=== PATIENT | male | born 1990 | race Caucasian/White ===

== ENCOUNTER 2023-03-06 18:16 | Emergency (ER) | payer SELFPAY ==
--- NOTE | ~2023-03-06 | CT_ITS ---
EXAMINATION: CTA chest PE protocol DATE: 03/06/2023 19:50 INDICATION: SOB TECHNIQUE: Computed tomography angiography (CTA) of the chest was performed with 100 mL Omnipaque-350 intravenous contrast timed to evaluate the pulmonary arteries. Coronal maximum intensity projection 3D-reconstructions were created by the technologist. The dose-length product (DLP) was 419.38 mGy-cm. Automated exposure control and iterative reconstruction technique were employed. COMPARISON: None. FINDINGS: Lung parenchyma and airways: Clear. Pleura: Unremarkable. Thoracic inlet, axillae and chest wall: Unremarkable. Thoracic aorta: Normal. Mediastinum: Normal. Heart and pericardium: Normal. Coronary artery calcifications: Absent. Upper abdomen: No significant finding. Bones: No acute osseous finding. Pulmonary arteries: Study quality: Adequate. No pulmonary emboli detected. IMPRESSION: No CT evidence of acute pulmonary embolus. No acute intrathoracic process detected. Reviewed, dictated and finalized at location K. IMPRESSION: No CT evidence of acute pulmonary embolus. No acute intrathoracic process detec kai.
--- NOTE | ~2023-03-06 | CT_ITS ---
EXAMINATION: CT brain wo con DATE: 03/06/2023 19:45 INDICATION: headache . TECHNIQUE: Computed tomography (CT) of the head was performed without intravenous contrast. The mA wa s adjusted according to patient size. Iterative reconstruction technique was employed. The dose-lengt h product was 681.00 mGy-cm. COMPARISON: None. FINDINGS: No acute intracranial hemorrhage or extra-axial fluid collection. No hydrocephalus, mass, or herniation. No acute ischemic infarct. Unremarkable dural venous sinus attenuation. No acute osseous abnormality. Small retention cysts or polyps in the left maxillary sinus, the remaining aerated spaces are clear. IMPRESSION: No acute intracranial process. Reviewed, dictated and finalized at location K.
[2023-03-06 18:21] VITALS: BP 155/89; PULSE 92; RESP 21; TEMP 36.8; O2SAT 97
[2023-03-06 18:26] VITALS: PULSE 92; RESP 23; O2SAT 97
[2023-03-06 18:30] VITALS: PULSE 95; RESP 17; O2SAT 98
[2023-03-06 18:32] VITALS: BP 146/88; PULSE 100; RESP 19; O2SAT 97
[2023-03-06 18:45] VITALS: PULSE 100; RESP 26; O2SAT 96
--- NOTE | 2023-03-06 18:53 | ECG_ITS ---
Measurements Intervals [place] Rate: 80 P: 62 UT: 171 QRS: 44 QRSD: 97 T: 50 QT: 352 QTc: 408 Interpretive Statements SINUS RHYTHM BORDERLINE VOLTAGE EVIDENCE OF LVH POSSIBLY NORMAL FOR AGE BORDERLINE ECG NO PREVIOUS ECG AVAILABLE FOR COMPARISON Electronically Signed On 03-07-2023 7:41:44 CDT by Phil Dahl M.D.
--- NOTE | 2023-03-06 19:05 | ED.GENADULT ---
HPI - General Adult General Chief complaint: Unspecified Stated complaint: sob, anxiety History of Present Illness HPI narrative: 32-year-old male presented to the emergency department for evaluation of shortness of breath and headache. Patient states while he was driving he had onset of shortness of breath and subsequently developed a headache. Patient denies any associated chest pain. Patient denies any previous cardiac history. Patient denies any prior history of PE DVT. Related Data Allergies Allergy/AdvReac Type Severity Reaction Status Date / Time bee venom protein (honey bee) Allergy Anaphylaxis Verified 03/06/23 18:56 [bees] Review of Systems Review of Systems: All systems reviewed & are unremarkable except as noted in HPI and below Exam Narrative: APPEARANCE: Well appearing, no pain, no distress, well-nourished. HEAD: normocephalic, atraumatic. EYES: PERRLA/EOMI, conjunctivae clear. NOSE: Normal no drainage NECK: Supple. No adenopathy, no masses. RESPIRATORY: Airway patent, respirations nonlabored. Clear to auscultation bilaterally, no rales, rhonchi, wheezing. CARDIOVASCULAR: Regular rate and rhythm without murmurs rubs or gallops. ABDOMINAL: Soft, nontender, nondistended, normal bowel sounds MUSCULOSKELETAL: Moves all extremities. Strength/ROM intact, No edema, No calf tenderness. NEURO: Alert. Cranial nerves II through XII intact. Grossly intact SKIN: Warm, dry. Normal Color Course Course Emergency Course: 32-year-old male presented the ED for evaluation of shortness of breath. Patient was afebrile with no chondrosis and a stable hemoglobin. CTA was negative for pulmonary embolism. CMP shows no acute abnormalities. Head CT was negative for acute abnormality. EKG showed normal sinus rhythm. Patient was updated on the results of the work-up and does feel improved. Patient was encouraged of close follow-up with his primary care physician. Vital Signs Vital signs: Vital Signs Temperature 98.3 F 03/06/23 18:21 Pulse Rate 92 03/06/23 18:21 Respiratory Rate 21 H 03/06/23 18:21 Blood Pressure 155/89 H 03/06/23 18:21 Pulse Oximetry 97 03/06/23 18:21 Oxygen Delivery Room Air 03/06/23 18:21 Temperature 98.3 F 03/06/23 18:21 Pulse Rate 78 03/06/23 20:36 Respiratory Rate 19 03/06/23 20:36 Blood Pressure 111/90 03/06/23 20:36 Pulse Oximetry 98 03/06/23 20:36 Oxygen Delivery Room Air 03/06/23 18:21 Medical Decision Making Vital Signs Vital Signs: Vital Signs Temperature 98.3 F 03/06/23 18:21 Pulse Rate 92 03/06/23 18:21 Respiratory Rate 21 H 03/06/23 18:21 Blood Pressure 155/89 H 03/06/23 18:21 Pulse Oximetry 97 03/06/23 18:21 Oxygen Delivery Room Air 03/06/23 18:21 Temperature 98.3 F 03/06/23 18:21 Pulse Rate 78 03/06/23 20:36 Respiratory Rate 19 03/06/23 20:36 Blood Pressure 111/90 03/06/23 20:36 Pulse Oximetry 98 03/06/23 20:36 Oxygen Delivery Room Air 03/06/23 18:21 Lab Data 03/06/23 19:11 03/06/23 19:11 Labs: Lab Results 03/06/23 Range/Units 19:11 WBC 8.0 (4.5-10.0) K/mm3 RBC 5.81 (4.6-6.20) M/mm3 Hgb 17.4 (14.0-18.0) g/dL Hct 49.4 (42.0-52.0) % MCV 85.0 (80-100) fl MCH 29.9 (26-34) pg MCHC 35.2 (32-36) g/dl RDW 13.0 (11.5-14.5) % Plt Count 226 (150-375) k/mm3 MPV 8.8 (7.4-10.4) fl Immature Gran % (Auto) 0.2 (0-0.5) % Neut % (Auto) 67.2 (45.5-73.1) % Lymph % (Auto) 27.1 (18.3-44.2) % [place] % (Auto) 4.4 (2.6-8.5) % Eos % (Auto) 0.4 (0-4.4) % Baso % (Auto) 0.7 (0.2-1.2) % Lymph # (Auto) 2.17 (0.9-3.2) K/mm3 [place] # (Auto) 0.4 (0.1-0.6) K/mm3 Eos # (Auto) 0.0 (0-0.3) K/mm3 Baso # (Auto) 0.1 (0.0-0.1) K/mm3 Abs Immat Gran (auto) 0.02 (0.00-0.031) K/mm3 Absolute Neuts (auto) 5.4 (1.3-6.7) K/mm3 Absolute Nucleated RBC 0.0 (0.0-0.012) K/mm3 Nucleated RBC % 0.0 (0.0-0.2) % Sodium 138 (137
[2023-03-06] MEDS: SODIUM CHLORIDE 0.9% IV 1,000 ML 999 ML IV CONT (19:07)
[2023-03-06 19:17] LABS: Basophils Absolute Auto 0.1 K/mm3 (0.0-0.1); Basophils Percent Auto 0.7 % (0.2-1.2); Eosinophils Percent Auto 0.4 % (0-4.4); Hematocrit 49.4 % (42.0-52.0); Hemoglobin 17.4 g/dL (14.0-18.0); Immature Granulocyte Absolute 0.02 K/mm3 (0.00-0.031); Immature Granulocyte Percent A 0.2 % (0-0.5); Lymphocytes Absolute Auto 2.17 K/mm3 (0.9-3.2); Lymphocytes Percent Auto 27.1 % (18.3-44.2); Mean Corpuscular HGB Conc 35.2 g/dl (32-36); Mean Corpuscular Hemoglobin 29.9 pg (26-34); Mean Platelet Volume 8.8 fl (7.4-10.4); Monocytes Absolute Auto 0.4 K/mm3 (0.1-0.6); Monocytes Percent Auto 4.4 % (2.6-8.5); Neutrophils Absolute Auto 5.4 K/mm3 (1.3-6.7); Neutrophils Percent Auto 67.2 % (45.5-73.1); Platelet Count Result 226 k/mm3 (150-375); Red Blood Count 5.81 M/mm3 (4.6-6.20)
[2023-03-06 19:28] LABS: Alanine Aminotransferase 19 U/L (6-50); Albumin Level 4.8 g/dL (3.5-5.1); Alkaline Phosphatase 63 U/L (38-126); Anion Gap 9 mmol/L (8-16); Aspartate Amino Transferase 23 U/L (17-59); Bilirubin,Total 0.9 mg/dL (0.2-1.3); Blood Urea Nitrogen 6 mg/dL (9-20); Calcium 9.8 mg/dL (8.4-10.2); Carbon Dioxide 24 mmol/L (22-30); Chloride 105 mmol/L (98-107); Estimated CRCL calculation 82 ml/min; Estimated Glomerular Filt Rate > 60; Glucose 100 mg/dL (65-110); Potassium 3.5 mmol/L (3.4-5.0); Sodium 138 mmol/L (137-145)
[2023-03-06 20:36] VITALS: BP 111/90; PULSE 78; RESP 19; O2SAT 98
[2023-03-06] MEDS: KETOROLAC 15 MG/ML VIAL (*BKC) IV PUSH (20:58)
== END 2023-03-06 21:41 | disposition home or self-care (01) ==
PROVIDERS: Emergency Provider Emergency Medicine
DX: R51.9 Headache, unspecified (principal); R06.00 Dyspnea, unspecified
CPT/HCPCS: 36415; 70450; 71275; 80053; 85025; 93005; 96361; 96374; 99284; J1885; J7030; Q9967